=== PATIENT | female | born 1960 | race Caucasian/White ===

== ENCOUNTER → 2022-11-22 13:22 | Outpatient (BNVA) | payer MEDICAID, SELFPAY | PROVIDERS: Visit Provider Physician Assistant | DX: M43.16 Spondylolisthesis, lumbar region (principal); M51.36 Other intervertebral disc degeneration, lumbar region; M50.30 Other cervical disc degeneration, unspecified cervical region; M19.031 Primary osteoarthritis, right wrist; M48.061 Spinal stenosis, lumbar region without neurogenic claudication; M48.02 Spinal stenosis, cervical region | CPT/HCPCS: 72050; 72110; 73110 ==

== ENCOUNTER → 2023-03-26 10:17 | Outpatient (BNVA) | payer OTHER, MEDICAID, SELFPAY | PROVIDERS: Visit Provider Physician Assistant | DX: M19.031 Primary osteoarthritis, right wrist (principal); M79.642 Pain in left hand; M25.539 Pain in unspecified wrist | CPT/HCPCS: 73110; 73130 ==

== ENCOUNTER → 2023-04-23 14:11 | Outpatient (BNVA) | payer OTHER, MEDICAID, SELFPAY | PROVIDERS: Visit Provider Physician Assistant | DX: M50.30 Other cervical disc degeneration, unspecified cervical region (principal) | CPT/HCPCS: 72050 ==

== ENCOUNTER 2023-04-23 16:16 | Outpatient (CLI) | payer OTHER, MEDICAID, SELFPAY | END 2023-04-23 16:17 | disposition home or self-care (01) | LOC: SPT 16:18 | PROVIDERS: Visit Provider Physician Assistant | DX: Z46.89 Encounter for fitting and adjustment of other specified devices (principal); M50.30 Other cervical disc degeneration, unspecified cervical region | CPT/HCPCS: 97760; L0172 ==

== ENCOUNTER 2025-05-05 16:21 | Emergency (ER) | payer OTHER, MEDICAID, SELFPAY ==
[2025-05-05 16:26] VITALS: PULSE 85; RESP 16; TEMP 36.4; O2SAT 97
--- NOTE | 2025-05-05 16:34 | XRR_ITS ---
PROCEDURE INFORMATION: Exam: XR Lumbosacral Spine Exam date and time: 05/05/2025 5:19 PM Age: 64 years old Clinical indication: Low back pain TECHNIQUE: Imaging protocol: Radiologic exam of the lumbosacral spine. Views: 2 or 3 views. COMPARISON: CR XR lumbar spine min 4V [id number] 11/22/2022 1:35 PM FINDINGS: Bones/joints: Grade 1 anterolisthesis of L4 on L5 and L5 on S1, slightly progressed compared to 11/22/2022. Lower lumbar spondylosis. Vertebral body heights are preserved. Soft tissues: Unremarkable. XR/XR lumbar spine 2-3V* [id number] IMPRESSION: No lumbar spine compression fracture.
--- NOTE | 2025-05-05 16:34 | XRR_ITS ---
PROCEDURE INFORMATION: Exam: XR Left Hip Exam date and time: 05/05/2025 5:19 PM Age: 64 years old Clinical indication: Injury or trauma; Fall; Blunt trauma (contusions or hematomas); Left; Hip; Additional info: Hip pain TECHNIQUE: Imaging protocol: Radiologic exam of the left hip. Views: 2 or 3 views hip with pelvis when performed. COMPARISON: CR (PELVIS, ) 05/05/2025 5:19 PM FINDINGS: Bones/joints: There is a linear lucency extending through a large osteophyte extending from the superior acetabulum with the lucency extending medially toward the acetabulum. Pelvic ring is intact. No displaced femur fracture. Severe left hip osteoarthritis. Soft tissues: Unremarkable. XR/XR hip LT 2-3V wo/w pel* [id number] IMPRESSION: Lucency extending through a large osteophyte arising from the superior acetabulum with the lucency extending medially toward the acetabulum. It is unclear if the fracture only involves the osteophyte or if it extends into the acetabulum. CT may be useful for further characterization.
== END 2025-05-05 19:02 | disposition left against medical advice (07) ==
PROVIDERS: Emergency Provider Family Medicine
DX: Z53.21 Procedure and treatment not carried out due to patient leaving prior to being seen by health care provider (principal); M25.752 Osteophyte, left hip; M54.50 Low back pain, unspecified; M25.552 Pain in left hip
CPT/HCPCS: 72100; 73502

== ENCOUNTER 2025-06-18 11:50 | Outpatient (CLI) | payer MEDICARE, SELFPAY ==
--- NOTE | 2025-06-18 12:04 | CT_ITS ---
WS: [id number] CT LEFT HIP, NONCONTRAST HISTORY:, Fall 3 months ago. Persistent hip pain. Technique: All CT scans at [facility] use at least one of these dose optimization techniques: automated exposure control; mA and/or kV adjustment per patient size (includes targeted exams where dose is matched to clinical indication); or iterative reconstruction. DLP: 209.62 mGy.cm COMPARISON: 05/05/2025 Nonhealed fracture involving the superior lateral acetabulum. The fracture is through an large osteophyte that is extending lateral from the acetabulum. There is no displacement. This fracture does not appear to be displaced from the original radiographs from 05/05/2025. No additional acute or healing fracture is identified. There is a lucency just superior to the acetabulum which is well- corticated and probably represents a nutrient foramen. Extensive acetabular ridging extending both anterior and posterior and osteophytic ridging around the femoral head and neck. Moderate narrowing of the hip joint with bone upon bone and subchondral cystic changes. Subchondral cystic changes in the femoral head are closely associated with the acetabular fracture site. This is also the site of greatest contact of bone upon bone. No soft tissue hematoma or inflammation. No free fluid within the visualized pelvis. No muscle atrophy or edema. CT/CT hip LT wo con* [id number] IMPRESSION: 1. Nondisplaced and incompletely healed fracture involving the osteophyte exte nding lateral from the super acetabulum which was described on 05/05/2025. 2. No additional fractures or osseous displacement is identified. 3. Moderate narrowing of the hip joint with bone upon bone along the superior lateral acetabulum. 4. Subchondral cystic changes in the superolateral femoral head.
== END 2025-06-18 11:51 | disposition home or self-care (01) ==
LOC: RAD 11:56
PROVIDERS: PCP Family Medicine; Visit Provider Family Medicine
DX: M84.459 Pathological fracture, hip, unspecified (principal); X58.XXXA Exposure to other specified factors, initial encounter; M25.752 Osteophyte, left hip; M89.8X8 Other specified disorders of bone, other site
CPT/HCPCS: 73700

== ENCOUNTER → 2025-07-08 09:45 | Outpatient (BNVA) | payer MEDICARE, SELFPAY | PROVIDERS: PCP Family Medicine; Visit Provider Orthopaedic Surgery | DX: M16.12 Unilateral primary osteoarthritis, left hip (principal) | CPT/HCPCS: 73502; 99204 ==

== ENCOUNTER 2025-07-28 12:21 | Observation (INO) | payer MEDICARE, MEDICAID, SELFPAY ==
[2025-07-28] VITALS (12 sets, daily range): BP systolic 91–162; BP diastolic 60–100; PULSE 57–88; RESP 12–22; TEMP 36.1–36.7; O2SAT 94–98; BMI 22.8
--- NOTE | 2025-07-28 08:51 | ECG_ITS ---
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 Measurements Intervals [place] Rate: 72 P: 73 WA: 163 QRS: 76 QRSD: 80 T: 42 QT: 376 QTc: 411 Interpretive Statements SINUS RHYTHM No previous ECG available for comparison Electronically Signed On 07-30-2025 19:54:22 BUFFET WAITER/WAITRESS by Umer Woodruff M.D. [id number]
[2025-07-28 09:18] LABS: Hematocrit 45.8 % (36-47); Hemoglobin 15.50 g/dL (11.27-16.99); Mean Corpuscular HGB Conc 33.8 g/dL (30-55); Mean Corpuscular Hemoglobin 33.8 pg (27-33); Mean Corpuscular Volume 99.8 fl (85-98); Nucleated Red Blood Cells % 0 %; Platelet Count 394 10^3/cmm (157-399); Red Blood Count 4.59 10^6/uL (3.85-5.65); White Blood Count 6.39 10^3/uL (3.29-11.43)
[2025-07-28 09:43] LABS: Blood Urea Nitrogen 11 mg/dL (8-23); Calcium 9.5 mg/dL (8.5-10.5); Carbon Dioxide 22 mmol/L (22-29); Chloride 105 mmol/L (98-107); Glucose 93 mg/dL (65-115); Osmolality Calculated 287 mOsm/kg (285-295); Sodium 139 mmol/L (136-145)
[2025-07-28 09:48] LABS: Anion Gap 16.3 (5-19); Potassium 4.3 mmol/L (3.5-5.1)
--- NOTE | 2025-07-28 10:04 | W.PM.OPSUD ---
Surgery/Procedure H&P Update DATE OF PROCEDURE: July 28, 2025 DATE H&P PERFORMED: 06/30/25 H&P UPDATE INFORMATION: I have reviewed H&P completed within last 30 days, I have examined patient prior to procedure and No changes to prior documentation PLANNED PROCEDURE: Operation Date: 07/28/25 10:20 Proposed Procedures p Total Hip Arthroplasty(Left) - Dung Olivas MD
--- NOTE | 2025-07-28 10:14 | ANES.PREANE2 ---
Pre-Anesthetic Assessment Height/Weight: Height 1.55 m Weight 54.885 kg Temp Pulse Resp BP Pulse Ox O2 Del Method 97.1 F L 78 18 139/100 95 Room Air 07/28/25 09:00 07/28/25 09:00 07/28/25 09:00 07/28/25 09:00 07/28/25 09:00 07/28/25 09:03 Operation Date: 07/28/25 10:20 Proposed Procedures p Total Hip Arthroplasty(Left) - Dung Olivas MD Familial anesthetic complications: none Was Beta Preet taken within 24 hours: N/A Was Clonidine taken within 24 hours: N/A Last intake: Intake Last Liquid Date 07/27/25 Last Liquid Time 20:00 Last Solid Date 07/27/25 Last Solid Time 20:00 Social Tobacco and No alcohol Exam alert, oriented x 3, clear to auscultation bilaterally and regular rate & rhythm Airway Mallampati: Class I Dentition: false Musc/skel Osteoarthritis/DJD Anesthetic Plan ASA status: 2 Anesthesia: Regional (specify below) Other: spinal Medications/Allergies Home Medications ?Medication ?Instructions ?Recorded ?Confirmed ?Last Taken ?Type cock up splint #1 ea 11/22/22 07/08/25 Unknown Rx cervical collar #1 ea 04/23/23 07/08/25 Unknown Rx trazodone 150 mg tablet 150 mg PO QPM 07/08/25 07/27/25 07/27/25 History Allergies Allergy/AdvReac Type Severity Reaction Status Date / Time Penicillins Allergy Unknown Verified 07/20/25 12:54 Current Medications Generic Name Dose Route Start Last Admin Trade Name Onel PRN Reason Stop Dose Admin Sodium Chloride 1,000 mls @ 30 mls/hr 07/28/25 08:45 07/28/25 09:18 Sodium Chloride 0.9% IV 07/29/25 08:44 30 mls/hr .Q24H TRUE Administration PFSH Anesthesia Social History Smoking and tobacco/nicotine status: current every day tobacco/nicotine user Alcohol intake: never Substance/Drug Use: never Data Anesthesia 07/28/25 09:10 07/28/25 09:10 Short CBC 07/28/25 Range/Units 09:10 WBC 6.39 (3.29-11.43) 10^3/uL Hgb 15.50 (11.27-16.99) g/dL Hct 45.8 (36-47) % MCV 99.8 H (85-98) fl Plt Count 394 (157-399) 10^3/cmm Neut % (Auto) 68.4 % Neut # (Auto) 4.37 (1.8-7.7) 10^3/uL BMP 07/28/25 09:10 Sodium 139 Potassium 4.3 Chloride 105 Carbon Dioxide 22 BUN 11 Creatinine 0.6 Glucose 93 Calcium 9.5
[2025-07-28] MEDS: tranexamic acid 1,000 mg/10mL SDV 1000 MG IV (11:20)
--- NOTE | 2025-07-28 12:47 | XR_ITS ---
WS: [id number] Exam: XR hip LT 1V wo/w pel [id number] Date/Time of Exam: 07/28/2025 12:47 PM Reason For Exam: POST OP Comparison 07/08/2025. LEFT total hip prosthesis has been placed. Postop changes in the adjacent soft tissues.
--- NOTE | 2025-07-28 12:51 | PM.OP ---
Operative Report Date of procedure: July 28, 2025 Surgeon: Dung Olivas MD Procedure: Preoperative diagnosis: Left total hip arthroplasty preoperative diagnosis: End-stage degenerative joint disease of the left hip Postoperative diagnosis: Same Procedure: Left total hip arthroplasty Surgeon: Dung Olivas MD Anesthesia: Spinal EBL: 100 cc Indications: Evette is a 65-year-old white female was referred to the orthopedic clinic for debilitating left hip pain. Subsequently upon evaluation she had loss of motion excruciating pain with weightbearing or any type of motion with the hip. X-rays demonstrated grossly end-stage degenerative disease with collapse of the femoral head, subchondral cyst, loss of joint space. Patient was offered a total hip arthroplasty at this time. All risk benefits treatment alternatives were discussed with her and she was agreeable to this at this time. Procedure: After obtaining written consent patient was taken to the operating room placed operative table supine position spinal anesthetic administered. Once good anesthesia was achieved patient was placed up in a left lateral decubitus position. Patient was held in place with the pegboard. Left hip and leg were then prepped and draped usual fashion. After surgical timeout the hip was flexed 90 degrees and a minimally invasive posterior lateral incision made over the greater trochanter. Sharp dissected, down to subcutaneous tissue electrocautery used for hemostasis. Deep dissection was taken on down along the posterior aspect of the greater trochanter as the leg was internally rotated. Dissection was taken along the greater trochanter all the way down to the femoral neck. All soft tissues were raised with electrocautery. Capsule was opened up in a T-type fashion hip was internally rotated until dislocated. Deep retractors were placed. Proximal femur was then templated for femoral neck cut. Femoral neck cut was then done with a sagittal saw without any difficulties. At this point appropriate retractor placed to expose the acetabulum. A long handled 10 blade and pickups were used to remove all of the labrum there was remaining in the acetabulum. STM was then reamed starting a size 42 reamer and going up by 2 mm each time until reaching 48 mm. At this point good bleeding bone was starting to show. Cup was then reamed on up to 49 with good bleeding bone identified circumferentially. Subsequently at this point cup was touched around the periphery with a size 50 reamer. At this point a permanent size 50 cup was placed with appropriate anteversion and impacted. Good fixation was achieved. Polyethylene liner was placed and locked in place. Deep retractors were removed. At this point proximal femoral retractor was placed to raise it up out of the wound. Entry point into the femur was done with a box cut osteotome. Hand reaming then power reamer was done in the proximal portion. Broaches were then used for starting up with a 0 and going to 1 and attempts were made to put in a size 2 broach however this was too large. Therefore was decided to go with a size 1 femoral stem. Areas washed copious amounts of pulse Avage irrigation. Everything was dried and clean. Permanent size 1 femoral component was placed and impacted with appropriate anteversion. Once in place trial head and necks were Then placed on the femoral neck and hip was reduced put through range of motion. It is found that the size 36 head with a +5 neck brought the leg up to a appropriate leg length. Hip was put through range of motion found to be stable. Wound was washed with copious Harper sterile rogation again. At this point permanent size 36 head with a +5 neck was placed on the Chiang taper impacted. Again hip was reduced and found to be stable. At this point capsule of the hip was repaired with #1 Vicryl [id number] sutures. Piriformis replaced back to the greater trochanter with #5 Ethibond sutures through bone tunnels. Deep retractors removed. Deep fascia repaired with #1 Vicryl [id number] sutures. Subcutaneous tissue reapproximated with 0 Vicryl interrupted sutures. As well as 2-0 Vicryl interrupted sutures. Skin was closed skin cameron. Wounds are cleaned and dried with Xeroform gauze and sterile OpSite dressing. Patient was then placed in abduction pillow awakened transferred to cover room in stable condition
--- NOTE | 2025-07-28 12:55 | ANE.PACU2 ---
Inpatient post-anesthesia follow up: Airway intact: Yes Vital signs: Temperature 97.4 F Pulse Rate 75 Respiratory Rate 19 Blood Pressure 135/83 Pulse Oximetry 98 Oxygen Delivery Me thod Room Air Oxygen Flow Rate 96 Fraction of Inspir ed Oxygen Hydration adequate: Yes Nausea and vomiting: No Pain level: 1 Mental status: Baseline
--- NOTE | 2025-07-28 13:24 | PC.NURSE ---
1308 accepted into room 269 with Gina RN at side - BP 110/60 - pulse 65 - 8347%
[2025-07-28] MEDS: HYDROcodone-acetaminophen 5-325 mg Tablet 1 TAB PO ×2 (14:02→21:32)
[2025-07-28] MEDS: mupirocin oint 22 gm 1 APPLIC NASAL (17:30)
[2025-07-28] MEDS: sennosides-docusate Tablet 2 TAB PO (17:31)
[2025-07-28] MEDS: chlorhexidine gluconate 0.12% Btl 473 mL 30 ML MUCOUS MEM (17:32)
[2025-07-29 04:00] VITALS: BP 132/78; PULSE 69; RESP 16; TEMP 36.8; O2SAT 96
[2025-07-29] MEDS: multivitamin therapeutic Tablet 1 TAB PO (04:49)
[2025-07-29] MEDS: sennosides-docusate Tablet 2 TAB PO (04:49)
[2025-07-29] MEDS: chlorhexidine gluconate 0.12% Btl 473 mL 30 ML MUCOUS MEM (04:51)
[2025-07-29] MEDS: mupirocin oint 22 gm 1 APPLIC NASAL (04:54)
[2025-07-29 06:02] LABS: Hematocrit 34.6 % (36-47); Hemoglobin 12.00 g/dL (11.27-16.99); Mean Corpuscular HGB Conc 34.7 g/dL (30-55); Mean Corpuscular Hemoglobin 33.3 pg (27-33); Mean Corpuscular Volume 96.1 fl (85-98); Nucleated Red Blood Cells % 0 %; Platelet Count 318 10^3/cmm (157-399); Red Blood Count 3.60 10^6/uL (3.85-5.65); White Blood Count 7.13 10^3/uL (3.29-11.43)
[2025-07-29 06:24] LABS: Anion Gap 16.0 (5-19); Blood Urea Nitrogen 9 mg/dL (8-23); Calcium 8.3 mg/dL (8.5-10.5); Carbon Dioxide 20 mmol/L (22-29); Chloride 109 mmol/L (98-107); Glucose 138 mg/dL (65-115); Osmolality Calculated 293 mOsm/kg (285-295); Potassium 4.0 mmol/L (3.5-5.1); Sodium 141 mmol/L (136-145)
[2025-07-29 07:53] VITALS: BP 110/69; PULSE 90; RESP 17; TEMP 36.8; O2SAT 91
[2025-07-29] MEDS: HYDROcodone-acetaminophen 5-325 mg Tablet 1 TAB PO ×2 (08:39→12:42)
--- NOTE | 2025-07-29 10:05 | PC.CHAP ---
Pastoral Care Encounter/Spiritual Assessment Type of Contact [] Declined waste/materials exchange specialist visit [] Patient/Family/Request visit [] Outpatient visit [] Follow-up visit [] Physician referral [] Code/Alert [x] Routine visit [] Staff referral [] Actively dying [] Patient sleeping [] Family support [] [] Out of room [] Palliative care [] [] Receiving care in room [] Pre-surgical visit [] Trauma [] Long length of stay [] ICU visit [] Other: Relational/Emotional Strength [x] Patient feels connected with others/family/visitors/staff [] Distress [] Loneliness/isolation [] Abandonment Spirituality of Patient [x] Person of Gina [] Attends Quaker of their Gina [x] Believes in Prayer [] Reads Bible or Mu-Ism materials [] There are Spiritual issues to be addressed Office Support Specialist Interventions [x] Prayer [x] Active listening [] Non-anxious presence [x] Spiritual/emotional support [] Crisis/trauma care [] Spiritual counseling [] Bereavement support [] Provided bereavement packet [] Provided Bible/devotional materials [] Provided toy/stuffed animal, coloring book to patient or family member [] Provided Communion [] Anointing/[place] [] Salvation [x] Completed spiritual assessment [] Other: Impact on Illness or Injury [] Angry [] Fearful [] Anxious [] Often cries [] Exhaustion [] Unable to work [] Unable to attend orthodox [] Unable to walk/stand [] Unable to read [] Unable to drive [] Unable to eat/drink [] Unable to sleep [] Unable to be with family [] Patient intubated [] Other: Summary Time spent with patient 5 min
[2025-07-29 11:55] VITALS: BP 111/69; PULSE 93; RESP 18; TEMP 36.9; O2SAT 94
[2025-07-29 16:00] VITALS: BP 119/74; PULSE 87; RESP 20; TEMP 36.8; O2SAT 97
--- NOTE | 2025-07-29 16:31 | P.DS_ITS ---
Discharge Providers Date of Admission: 07/28/25 12:21 Date of Discharge: July 29, 2025 Attending Provider at Admission: Dung Olivas MD Attending Provider at Discharge: Dung Olivas MD Primary Care Provider: Vaughn Mcconnell MD Reason for Visit Reason for Visit: M25.552 Brief History: Patient was admitted on 07/28/2025 for end-stage degenerative joint disease of left hip. Subsequently had a left total hip arthroplasty yesterday. She tolerated this quite well. Hospital Course Hospital Course Patient had surgery on 07/28/2025 above-stated procedure. She tolerated this well. Postoperatively he was able to participate with physical therapy and get up and ambulatory with a walker. Having no pain no problems no difficulties other than to be expected. By 07/29/2025 afternoon she was ready to be discharged home. Physical Exam Narrative: Wounds are covered with dressings and these are clear. She has minimal swelling no ecchymosis no other gross abnormalities. Neurovascular intact distally Urinary Catheter Management: White: Cath Placed During This Visit: yes Reason for Continuing Indwelling Catheter: Perioperative Use in Selected Surgeries Urinary Catheter Date of Insertion: 07/28/25 Urinary Catheter Time of Insertion: 11:22 Discharge Data Studies Completed and Pending Completed Studies During Hospitalization Category Date Time Status XR hip LT 1V wo/w pel [id number] Routine Exams 07/28/25 12:47 Completed Pending at discharge Category Date Time Status Complete Blood Count w/Auto AM LABS Lab 07/30/25 04:00 Ordered Complete Blood Count w/Auto AM LABS Lab 07/31/25 04:00 Ordered Laboratory Results WBC 7.13 10^3/uL (3.29-11.43) 07/29/25 05:23 RBC 3.60 10^6/uL (3.85-5.65) L 07/29/25 05:23 Hgb 12.00 g/dL (11.27-16.99) 07/29/25 05:23 Hct 34.6 % (36-47) L 07/29/25 05:23 MCV 96.1 fl (85-98) 07/29/25 05:23 MCH 33.3 pg (27-33) H 07/29/25 05:23 MCHC 34.7 g/dL (30-55) 07/29/25 05:23 RDW 12.8 % (12.1-15.1) 07/29/25 05:23 Plt Count 318 10^3/cmm (157-399) 07/29/25 05:23 MPV 9.0 fL (7.4-10.4) 07/29/25 05:23 Neut % (Auto) 72.6 % 07/29/25 05:23 Lymph % (Auto) 15.6 % 07/29/25 05:23 [place] % (Auto) 10.2 % 07/29/25 05:23 Eos % (Auto) 0.7 % 07/29/25 05:23 Baso % (Auto) 0.6 % 07/29/25 05:23 Neut # (Auto) 5.18 10^3/uL (1.8-7.7) 07/29/25 05:23 Lymph # (Auto) 1.1 10^3/uL (0.8-4.8) 07/29/25 05:23 [place] # (Auto) 0.7 10^3/uL (0.2-0.9) 07/29/25 05:23 Eos # (Auto) 0.1 10^3/uL (0.0-0.8) 07/29/25 05:23 Baso # (Auto) 0.0 10^3/uL (0.0-0.1) 07/29/25 05:23 Nucleated RBC % (auto) 0 % 07/29/25 05:23 Nucleated RBCs # 0.0 /100WBC 07/29/25 05:23 Sodium 141 mmol/L (136-145) 07/29/25 05:23 Potassium 4.0 mmol/L (3.5-5.1) 07/29/25 05:23 Chloride 109 mmol/L (98-107) H 07/29/25 05:23 Carbon Dioxide 20 mmol/L (22-29) L 07/29/25 05:23 Anion Gap 16.0 (5-19) 07/29/25 05:23 BUN 9 mg/dL (8-23) 07/29/25 05:23 Creatinine 0.6 mg/dL (0.5-0.9) 07/29/25 05:23 GFR Calculation 100.0 mL/min (90-130) 07/29/25 05:23 Glucose 138 mg/dL (65-115) H 07/29/25 05:23 Calculated Osmolality 293 mOsm/kg (285-295) 07/29/25 05:23 Calcium 8.3 mg/dL (8.5-10.5) L 07/29/25 05:23 Procedures Performed Left total hip arthroplasty Vitals Last Vital Signs Temp 98.2 F 07/29/25 16:00 Pulse 87 07/29/25 16:00 Resp 20 H 07/29/25 16:00 BP 119/74 07/29/25 16:00 Pulse Ox 97 07/29/25 16:00 O2 Del Method Room Air 07/29/25 16:00 O2 Flow Rate 96 07/28/25 13:54 Discharge Plan Discharge Patient Disposition: Home Health Service Condition: Stable Prescriptions: New hydrocodone-acetaminophen 5-325 mg tablet 1 tab PO Q6H PRN (Reason: pain) Qty: 30 0RF Continued (DME) cock up splint See Rx Instructions .Route .MEDSUPPLY Qty: 1 0RF Rx Instructions: As directed (DME) cervical collar See Rx Instructions .Route .MEDSUPPLY Qty: 1 0RF Rx Instructions: As directed trazodone 150 mg tablet See Rx Instructions .ROUTE .COMPLEX Rx Instructions: Take 1 to 2 tablets by mpouth daily at bedtime Discharge Order = DC NOW: Discharge Order (Routine); Ordered 07/29/25 Ordered By: Dung Olivas Other Ambulatory Orders: DME: [employer] (Order) Location: None Selected Ordered By: Dung Olivas DME: Walker (Order) Location: None Selected Ordered By: Dung Olivas Referrals: [facility] [place] [Outside] Dung Olivas MD [Physician, Orthopedics] - 08/19/25 10:45 am Discharge Diet: Advance as tolerated Discharge Activity: Increase activity as tolerated Patient Instructions: Hydrocodone/Acetaminophen (By mouth), Acute Wound Care (DC), Total Hip Replacement (GEN), Opioid Safety, Post Anesthesia Care, Patient Portal & Annabella Instructions Activity Restrictions/Additional Instructions: Hip precautions at all times Abduction pillow between legs while in bed Do not cross your legs over Ice left hip as needed Ambulate daily with a walker Do home exercise program Discharge Attestations Time Spent in Discharge Care*: less than 30 min Quality Metrics Clinical Quality Measures [ No reported AMI, CVA or VTE this stay] Coding Level of Care Code Acute Code for Chg Fwd
--- NOTE | 2025-07-29 16:51 | PC.NURSE ---
pts family brought a truck for her to get into. they also were using a round log as a step stool. educ pt and family, that this was not a safe way to get into the vehicle. they continued to use it to assist with her getting into the vehicle. pt also had prev. refused walker from [facility]. she changed her mind, educ. where to pick it up since she changed her mind and it was taken back to the store.
== END 2025-07-29 16:45 | disposition home health service (06) ==
LOC: MEDSURG 12:21
PROVIDERS: Anesthesiology; Admitting Provider Orthopaedic Surgery; PCP Family Medicine; Visit Provider Orthopaedic Surgery
PROC: (CPT 27130; principal; 2025-07-28 10:20)
DX: M16.12 Unilateral primary osteoarthritis, left hip (principal); F17.200 Nicotine dependence, unspecified, uncomplicated
CPT/HCPCS: 27130; 36415; 51702; 73501; 80048; 85025; 93005; 97110; 97116; 97161; 97167; 97530; C1713; C1776; G0378; J1885; J2704; J3490; J7030; J9999

== ENCOUNTER 2025-07-30 13:20 | Emergency (ER) | payer MEDICARE, MEDICAID, SELFPAY ==
[2025-07-30 12:30] VITALS: BP 92/56; PULSE 70; RESP 14; TEMP 36.6; O2SAT 95; BMI 22.8
[2025-07-30 12:43] VITALS: BP 101/65; PULSE 70; O2SAT 95
--- NOTE | 2025-07-30 12:52 | ED_ITS ---
Documented by User: LEANNA Baxter 07/30/25 14:59 HPI - Extremity Problem General: Chief complaint: Extremity Injury, Lower Stated complaint: hip pain post surgery Source: patient, EMS and old records reviewed Mode of arrival: EMS Limitations: no limitations History of Present Illness: Patient is a 65-year-old female presents emergency brought in by ambulance for left hip pain status post surgery on 07/28. Patient reportedly had left total hip arthroplasty, was set to be placed in rehab facility but at that time denied it. She went home and states that she fell while trying to ambulate herself, and is here stating that she just needs rehab placement. Had reported severe pain but completely resolved after receiving fentanyl by EMS. She has no other complaints at this time, her vitals are stable. No trauma to the hip. No fevers or nausea/vomiting. MD Complaint: joint pain Onset (ago): day(s) Location: left and lower extremity (Hip) Associated symptoms: Deny chest pain, fever(s) or rash Context: recent surgery/procedure Related Data Home Medications ?Medication ?Instructions ?Recorded ?Confirmed trazodone 150 mg tablet See Rx Instructions .Route . COMPLEX 07/08/25 07/30/25 diphenhydramine 25 1 tab PO Q6H PRN slepp 07/3007/30/25 mg-acetaminophen 500 mg tablet (Tylenol PM Extra Strength) varenicline tartrate 0.5 mg (11)-1 See Rx Instructions .Route .COMPLEX 07/30/25 07/30/25 mg (42) tablets in a dose pack varenicline tartrate 1 mg tablet 1 mg PO BID 07/30/25 07/30/25 Previous Rx's ?Medication ?Instructions ?Recorded cock up splint #1 ea 11/22/22 cervical collar #1 ea 04/23/23 hydrocodone 5 mg-acetaminophen 325 1 tab PO Q6H PRN pa in #30 tabs 07/29/25 mg tablet Allergies Allergy/AdvReac Type Severity Reaction Status Date / Time Penicillins Allergy Unknown Verified 07/30/25 12:42 Review of Systems General: Reports: 10 or more systems reviewed and unremarkable except in HPI and below Const: Denies: fever(s) or chills Card: Denies: chest pain Resp: Denies: dyspnea or productive cough GI: Denies: abdominal pain, nausea, vomiting or diarrhea : Denies: flank pain Musc: Reports: joint pain (Left hip); Denies: neck pain, back pain, extremity pain, extremity swelling, joint swelling, joint redness, joint warmth, limited range of motion or muscle weakness Skin/Breast: Denies: rash Neuro: Denies: headache(s), numbness in extremities or weakness in extremities PFSH ED PFSH: Social History Smoking and tobacco/nicotine status: current every day tobacco/nicotine user Alcohol intake: never Substance/Drug Use: never Physical Exam Const: COMMON NORMALS: no acute distress, patient oriented x3, no limitations, healthy appearing, alert and well nourished HENMT: COMMON NORMALS: normocephalic and atraumatic HEAD & SCALP: normocephalic and atraumatic Neck/C-Spine: COMMON NORMALS: full ROM, supple and no meningeal signs Resp: COMMON NORMALS: normal respiratory effort, No use of accessory muscles and clear to auscultation bilaterally AUSCULTATION: clear to auscultation bilaterally Cardio: COMMON NORMALS: regular rate and regular rhythm RATE: regular rate RHYTHM: regular rhythm Extremity: COMMON NORMALS: full ROM, capillary refill normal, no joint e nlargement and no clubbing, cyanosis or edema NARRATIVE EXTREMITY EXAM: Mild tender to palpation left lateral hip, there is postoperative bandage in place, no significant erythema or skin swelling surrounding the incision. Distal neurovascular exam is normal. Neuro: COMMON NORMALS: patient oriented x3, moves all extremities, no focal motor deficits and no sensory deficits noted SENSORIUM/ORIENTATION: Yes alert MENINGEAL SIGNS: Yes no meningeal signs Skin: COMMON NORMALS: no rashes or lesions noted GENERAL SKIN EXAM: no rashes or lesions noted Course Vital Signs: Vital signs: Vital Signs Temperature 97.8 F 07/30/25 12:30 Pulse Rate 76 07/30/25 15:10 Respiratory Rate 14 07/30/25 12:30 Blood Pressure 114/69 07/30/25 15:10 Pulse Oximetry 94 07/30/25 15:10 Oxygen Delivery Me thod Room Air 07/30/25 12:30 MDM - Extremity (Nontraumatic) Medical Decision Making Patient present by ambulance for left hip pain status post total left hip arthropathy couple days ago. She reports stating that she is able to care for self at home, had a fall while trying to ambulate despite being 2 days postop, initially from the hospital had denied wanting transferred to rehab facility but states that here today she needs placement due to her being able to care for herself. She was pain-free following medications from EMS, neurological exam normal to the left lower extremity and knee x-ray did not show any acute abnormalities from the reported fall today. With assistance from kinjal holdenmicah humphreysgalen, patient will be placed at [facility] for rehabilitation, no further workup necessary in the ED at this time. Lab Data Radiology Impressions Hip/Pelvis X-Ray 07/30/25 12:53 IMPRESSION: 1. Stable appearing LEFT hip total arthroplasty. No complications. All radiology interpretation(s) finalized by discharge Discharge Plan Discharge Patient Disposition: Rehab Fac w Plan Readm Clinical Impression: History of arthroplasty of left hip Condition: Stable Prescriptions: No Action (DME) cock up splint See Rx Instructions .Route .MEDSUPPLY Qty: 1 0RF Rx Instructions: As directed (DME) cervical collar See Rx Instructions .Route .MEDSUPPLY Qty: 1 0RF Rx Instructions: As directed trazodone 150 mg tablet See Rx Instructions .ROUTE .COMPLEX Rx Instructions: Take 1 to 2 tablets by mpouth daily at bedtime hydrocodone-acetaminophen 5-325 mg tablet 1 tab PO Q6H PRN (Reason: pain) Qty: 30 0RF diphenhydramine-acetaminophen [Tylenol PM Extra Strength] 25-500 mg Tablet 1 tab PO Q6H PRN (Reason: slepp ) varenicline tartrate 1 mg tablet 1 mg PO BID varenicline tartrate 0.5 mg (11)- 1 mg (42) tablets,dose pack See Rx Instructions .ROUTE .COMPLEX Rx Instructions: TAKE BY MOUTH DIRECTED ON INSIDE OF PACKAGE Discharge Orders: Discharge ED (Routine); Ordered 07/30/25 Ordered By: Qasim Leger Referrals: Vaughn Mcconnell MD [Primary Care Provider, Family Practice] Print Language: Greek Coding Level of Care Code ED Health Information Internship for Chg Fwd Documented by User: Manuel Orosco DO 07/31/25 14:32 HPI - Extremity Problem General: Chief complaint: Extremity Injury, Lower Stated complaint: hip pain post surgery Related Data Home Medications ?Medication ?Instructions ?Recorded ?Confirmed trazodone 150 mg tablet See Rx Instructions .Route . COMPLEX 07/08/25 07/30/25 diphenhydramine 25 1 tab PO Q6H PRN slepp 07/3007/30/25 mg-acetaminophen 500 mg tablet (Tylenol PM Extra Strength) varenicline tartrate 0.5 mg (11)-1 See Rx Instructions .Route .COMPLEX 07/30/25 07/30/25 mg (42) tablets in a dose pack varenicline tartrate 1 mg tablet 1 mg PO BID 07/30/25 07/30/25 Previous Rx's ?Medication ?Instructions ?Recorded cock up splint #1 ea 11/22/22 cervical collar #1 ea 04/23/23 hydrocodone 5 mg-acetaminophen 325 1 tab PO Q6H PRN pa in #30 tabs 07/29/25 mg tablet Allergies Allergy/AdvReac Type Severity Reaction Status Date / Time Penicillins Allergy Unknown Verified 07/30/25 12:42 PFS ED PFSH: Social History Smoking and tobacco/nicotine status: current every day tobacco/nicotine user Alcohol intake: never Substance/Drug Use: never Course Vital Signs: Vital signs: Vital Signs Temperature 97.8 F 07/30/25 12:30 Pulse Rate 76 07/30/25 15:10 Respiratory Rate 14 07/30/25 12:30 Blood Pressure 114/69 07/30/25 15:10 Pulse Oximetry 94 07/30/25 15:10 Oxygen Delivery Me thod Room Air 07/30/25 12:30 MDM - Extremity (Nontraumatic) Medical Decision Making Patient present by ambulance for left hip pain status post total left hip arthropathy couple days ago. She reports stating that she is able to care for self at home, had a fall while trying to ambulate despite being 2 days postop, initially from the hospital had denied wanting transferred to rehab facility but states that here today she needs placement due to her being able to care for herself. She was pain-free following medications from EMS, neurological exam normal to the left lower extremity and knee x-ray did not show any acute abnormalities from the reported fall today. With assistance from case management, patient will be placed at [facility] for rehabilitation, no further workup necessary in the ED at this time. Chart reviewed Lab Data Radiology Impressions Hip/Pelvis X-Ray 07/30/25 12:53 IMPRESSION: 1. Stable appearing LEFT hip total arthroplasty. No complications. Discharge Plan Discharge Patient Disposition: Rehab Fac w Plan Readm Clinical Impression: History of arthroplasty of left hip Condition: Stable Prescriptions: No Action (DME) cock up splint See Rx Instructions .Route .MEDSUPPLY Qty: 1 0RF Rx Instructions: As directed (DME) cervical collar See Rx Instructions .Route .MEDSUPPLY Qty: 1 0RF Rx Instructions: As directed trazodone 150 mg tablet See Rx Instructions .ROUTE .COMPLEX Rx Instructions: Take 1 to 2 tablets by mpouth daily at bedtime hydrocodone-acetaminophen 5-325 mg tablet 1 tab PO Q6H PRN (Reason: pain) Qty: 30 0RF diphenhydramine-acetaminophen [Tylenol PM Extra Strength] 25-500 mg Tablet 1 tab PO Q6H PRN (Reason: slepp ) varenicline tartrate 1 mg tablet 1 mg PO BID varenicline tartrate 0.5 mg (11)- 1 mg (42) tablets,dose pack See Rx Instructions .ROUTE .COMPLEX Rx Instructions: TAKE BY MOUTH DIRECTED ON INSIDE OF PACKAGE Discharge Orders: Discharge ED (Routine); Ordered 07/30/25 Ordered By: Qasim Leger Referrals: Vaughn Mcconnell MD [Primary Care Provider, Family Practice] Print Language: Greek Coding Level of Care Code ED Health Information Internship for Rebecca Mfcarlane
--- NOTE | 2025-07-30 12:53 | XR_ITS ---
WS: [id number] Exam: XR hip LT 2-3V wo/w pel* [id number] Date/Time of Exam: 07/30/2025 1:30 PM Reason For Exam: recent hip surgery, fall today Comparison 07/28/2025. Intact LEFT total hip replacement noted. No fracture or loosening. Residual soft tissue changes secondary to surgery. Lateral surgical skin clips. The pelvis is intact. Intact RIGHT hip. XR/XR hip LT 2-3V wo/w pel* [id number] IMPRESSION: 1. Stable appearing LEFT hip total arthroplasty. No complications.
[2025-07-30 13:41] VITALS: BP 98/64; O2SAT 94
--- NOTE | 2025-07-30 14:58 | PC.SOCIAL ---
CM spoke to patient and informed her that she could go to a SNF under her medicaid but she wouldnt recieve PT and she would have to give up her check if she is still there the first of August. She voiced understanding and was agreeable. Referral faxed to [facility], [facility], [facility] and [facility]. Kamala Calls and states [facility] accepts. ER notified at this time. [id number] done, doctor signed and copy placed in chart. Ref #[id number]
--- NOTE | 2025-07-30 15:02 | PC.NURSE ---
report given to JAKI Plascencia at [facility]
[2025-07-30 15:10] VITALS: BP 114/69; PULSE 76; O2SAT 94
== END 2025-07-30 15:15 ==
PROVIDERS: Emergency Provider Physician Assistant; PCP Family Medicine
DX: Z96.642 Presence of left artificial hip joint (principal); Z72.0 Tobacco use
CPT/HCPCS: 73502; 99283

== ENCOUNTER 2025-08-01 16:15 | Emergency (ER) | payer MEDICARE, MEDICAID, SELFPAY ==
--- OUTSIDE RECORDS SUMMARY | 2025-08-01 16:18 | XMS_ITS ---
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 Name Role Phone Haider Ora Unavailable Unavailable Alvin Griffith Unavailable Unavailable Allergies and adverse reactions Code CodeSystem Substance Reaction Severity StartDate Concern Status 7984 RXNORM Penicillin Unknown 07/30/2025 active Care Team Name Role Address Phone Organization Dates Alvin Griffith [facility] [address] [place], [address], [facility] (Office): [facility] 07/30/2025 - present Ora Maloney [address] [place] [address], [facility], [facility] (Office): : [facility] 07/30/2025 - present Encounters Encounter Type Code Code System Description Performer Discharge Disposition Service Delivery Location Date Ambulatory Encounter CPT Code = [id number] Attention to prosthetic replacement of articulation of bone [facility] Address: [address] [place] [address], [address] [place] [address]. 07/30 Ambulatory Encounter CPT Code = [id number] Osteoarthritis of hip [facility] Address: [address] [place] [address], [address] [place] [address]. 07/30 Ambulatory Encounter CPT Code = [id number] Hip pain [facility] Address: [address] [place] [address], [address] [place] [address]. 07/30 Ambulatory Encounter CPT Code = [id number] Chronic pain [facility] Address: [address] [place] [address]. 07/30 Ambulatory Encounter CPT Code = [id number] Constipation [facility] Address: [address] [place] [address]. 07/30 Ambulatory Encounter CPT Code = [id number] Insomnia [facility] Address: [address] [place] [address]. 07/30 Functional Status Code Name Recorded Time Value Entered By Ambulation 08/01/2025 Extensive Assistance sapphir ecarswell Ambulation 08/01/2025 Extensive Assistance sapphir ecarswell Ambulation 08/01/2025 Extensive Assistance sapphir ecarswell Ambulation 08/01/2025 Extensive Assistance sapphir ecarswell Dressing 08/01/2025 Extensive Assistance sapphir ecarswell Feeding or Eating 08/01/2025 Supervision sapphireca rswell Toileting 08/01/2025 Extensive Assistance sapphir ecarswell Transferring 08/01/2025 Extensive Assistance sapphir ecarswell Immunizations Immunization Status Vaccine Details Vaccine Code CodeSystem Date Notes TB 2 Step Mantoux Skin Test completed tuberculin skin test; unspecified formulation lotNumber: [id number] expiry: 05/17/2026 Mfg: Pharmaceutical Given 0.1 ml Left Forearm intradermally Step 1 of Multi-step with next step required 98 CVX created date: 07/31/2025 consent date: 07/31/2025 administer ed date: 07/31/2025 Educated by on 07/31/2025 TB given in left forearm. This blurb writer circled area with black permanent marker will read in 48 hours TB 2 Step Mantoux Skin Test new tuberculin skin test; unspecified formulation 98 CVX created date: 07/31/2025 consent date: 07/31/2025 Medications Section Medication Name Status Code CodeSystem Dose Route Frequency Admin Type Sig Text Start Date End Date Indication HYDROcodone -Acetaminop hen Oral Tablet 5-325 MG aborted 79660 2 RXNORM 1 table t Oral as needed PRN Give 1 table t by mouth every 6 hours as neede d for Pain 07/31 Pain HYDROcodone -Acetaminop hen Oral Tablet 5-325 MG active 44131 2 RXNORM 1 table t Oral as needed PRN Give 1 table t by mouth every 6 hours as neede d for Pain Not to excee d 4,000 mg Tylen ol from [facility] 24 hours . 2024 - Pain Mylanta Suspension 200-200-20 MG/5ML active 54704 6 RXNORM 30 ml Oral as needed PRN Give 30 ml by mouth every 4 hours as neede d for indig estio n for 3 Days 08/03 indigestion Bisacodyl Tablet Delayed Release 5 MG aborted 14576 3 RXNORM 2 table t Oral as needed PRN Give 2 table t by mouth as neede d for const ipati on at AM 08/01 constipatio n Bisacodyl Tablet Delayed Release 5 MG active 19686 3 RXNORM 2 table t Oral as needed PRN Give 2 table t by mouth every 24 hours as neede d for const ipati on in the [facility] 2024 - constipatio n Insurance Providers Problems Problem # Description Date of onset Resolved Date Code CodeSystem Concern Status 1 AFTERCARE FOLLOWING JOINT REPLACEMENT SURGERY 07/30/[address] active 2 CONSTIPATION, UNSPECIFIED 07/30/[address] active 3 OTHER CHRONIC PAIN 07/30/[address] active 4 OTHER INSOMNIA 07/30/[address] ac tive 5 PAIN IN LEFT HIP 07/30/[address] a ctive 6 UNILATERAL PRIMARY OSTEOARTHRITIS, LEFT HIP 07/30/[address] active Reason for Referral No Reasons for Referral Entered Social History Social History Observation Description Start Date End Date Code Code System Current Smoking Status Tobacco smoking consumption unknown 969074768 SNOMED CT Sex Assigned At Female 1960 82522-8 LOINC Gender Identity Sexual Orientation Vital Signs Code Code System Vitals Name Values and Units Timing Information 11874-6 LOINC Pain Level Value=3.0 08/01/2025 9279-1 LOINC Respiratory Rate Value=18.0 Units=/m in 08/01/2025 8462-4 [facility] Blood Pressure-Diastolic Value=81 Un its=mmHg 08/01/2025 8480-6 [facility] Blood Pressure-Systolic Oolxf=468 Un its=mmHg 08/01/2025 8310-5 [facility] Body Temperature Value=98.3 Units= F 08/01/2025 8867-4 [facility] Heart rate Value=78.0 Units=/min 78732-6 [facility] O2 % BldC Oximetry Value=95.0 Units= % 08/01/2025 8302-2 [facility] Height Value=61.0 Units=Inches 07/31/2025 82622-1 [facility] Weight Depfq=953.6 Units=Lbs
--- NOTE | 2025-08-01 16:19 | XRR_ITS ---
PROCEDURE INFORMATION: Exam: XR Left Hip Exam date and time: 08/01/2025 4:29 PM Age: 65 years old Clinical indication: Hip pain; Left hip; Prior surgery; Surgery date: <1 month; Surgery type: Lt hip TECHNIQUE: Imaging protocol: Radiologic exam of the left hip. Views: 2 or 3 views hip with pelvis when performed. COMPARISON: CR XR hip LT 2-3V wo/w pel* [id number] 07/30/2025 1:22 PM FINDINGS: Bones/joints: There is a stable and normal-appearing left total hip prosthesis. Pelvis and right hip are unremarkable. Soft tissues: Postoperative soft tissue changes are seen including multiple skin cameron. XR/XR hip LT 2-3V wo/w pel* [id number] IMPRESSION: No acute findings. Stable left total hip prosthesis.
--- NOTE | 2025-08-01 16:19 | USR_ITS ---
PROCEDURE INFORMATION: Exam: US Duplex Left Lower Extremity Veins, Limited Exam date and time: 08/01/2025 4:54 PM Age: 65 years old Clinical indication: Pain; Leg, upper and foot; Prior surgery; Surgery date: 3-7 days post-operative; Surgery type: Patient had left hip replacement 07/28/2025; Additional info: Left leg pain TECHNIQUE: Imaging protocol: Real-time duplex ultrasound of the left extremity with 2-D espinoza scale, color Doppler flow and spectral waveform analysis including responses to compression and other maneuvers (when performed) with image documentation. Limited exam focused on the left lower extremity veins. COMPARISON: CT hip LT wo con* [id number] 06/18/2025 12:11 PM FINDINGS: Left deep veins: Unremarkable. The common femoral, femoral, proximal profunda femoral and popliteal veins as well as the visualized deep veins of the lower leg are patent without thrombus. Normal Doppler waveforms. Normal compressibility and/or augmentation response. Superficial veins: Greater saphenous vein at the saphenofemoral junction is patent without thrombus. Soft tissues: Unremarkable. US/[place] [id number] IMPRESSION: No evidence of deep vein thrombosis.
[2025-08-01 16:32] VITALS: BP 128/74; PULSE 77; RESP 17; TEMP 36.8; O2SAT 97
[2025-08-01] MEDS: ondansetron 2 mg/ML SDV 2 mL 4 MG IVP (16:33)
[2025-08-01] MEDS: HYDROmorphone 0.5 MG/0.5 ML INJ 1 MG IVP (16:33)
[2025-08-01 16:40] VITALS: BP 131/75; PULSE 78; O2SAT 96
--- NOTE | 2025-08-01 16:40 | ED_ITS ---
HPI - Fall General: Chief Complaint: Fall Stated Complaint: left hip pain Time Seen by Provider: 08/01/25 16:17 Source: patient and EMS Mode of arrival: EMS Limitations: no limitations History of Present Illness: 65-year-old female had a left hip replac ement last week has been having significant pain since then. Patient states she had had a fall 2 days ago was seen here had a negative x-ray but is continued to have pain at the residential. States pain sharp in nature in her left hip rates it a 7 out of 10 has had some slight swelling to the left leg as well. Denies any fevers. Related Data Home Medications ?Medication ?Instructions ?Recorded ?Confirmed trazodone 150 mg tablet See Rx Instructions .Route . COMPLEX 07/08/25 07/30/25 diphenhydramine 25 1 tab PO Q6H PRN slepp 07/3007/30/25 mg-acetaminophen 500 mg tablet (Tylenol PM Extra Strength) varenicline tartrate 0.5 mg (11)-1 See Rx Instructions .Route .COMPLEX 07/30/25 07/30/25 mg (42) tablets in a dose pack varenicline tartrate 1 mg tablet 1 mg PO BID 07/30/25 07/30/25 Previous Rx's ?Medication ?Instructions ?Recorded cock up splint #1 ea 11/22/22 cervical collar #1 ea 04/23/23 hydrocodone 5 mg-acetaminophen 325 1 tab PO Q6H PRN pa in #30 tabs 11/13/25 mg tablet oxycodone-acetaminophen 10 mg-325 1 tab PO Q8H PRN magnolia n #14 tabs 11/16/25 mg tablet (Percocet) Allergies Allergy/AdvReac Type Severity Reaction Status Date / Time Penicillins Allergy Unknown Verified 07/30/25 12:42 Review of Systems Musc: Reports: extremity pain PFSH ED PFSH: Social History Smoking and tobacco/nicotine status: current every day tobacco/nicotine user Alcohol intake: never Substance/Drug Use: never Physical Exam Const: COMMON NORMALS: no acute distress, patient oriented x3 and healthy appearing HENMT: COMMON NORMALS: normocephalic and atraumatic HEAD & SCALP: normocephalic and atraumatic Neck/C-Spine: COMMON NORMALS: full ROM and supple Chest: COMMONS NORMALS: normal inspection of the chest Resp: COMMON NORMALS: normal respiratory effort Cardio: COMMON NORMALS: regular rate, regular rhythm and No murmurs present (Cardio) RATE: regular rate RHYTHM: regular rhythm Extremity: COMMON NORMALS: full ROM NARRATIVE EXTREMITY EXAM: Tenderness noted over left hip incisions clean dry and intact no erythema or warmth to touch. Distal pulses sensation intact has some slight swelling to left lower leg Neuro: COMMON NORMALS: patient oriented x3, moves all extremities and no focal motor deficits Psych: COMMON NORMALS: mental status grossly normal, Normal thought process present and cooperative THOUGHT PROCESS: Normal thought process present Skin: COMMON NORMALS: no rashes or lesions noted and no wounds GENERAL SKIN EXAM: no rashes or lesions noted Course Vital Signs: Vital signs: Vital Signs Temperature 98.3 F 08/01/25 16:32 Pulse Rate 78 08/01/25 16:40 Respiratory Rate 17 08/01/25 16:32 Blood Pressure 131/75 08/01/25 16:40 Pulse Oximetry 96 08/01/25 16:40 Oxygen Delivery Me thod Room Air 08/01/25 16:40 MDM - Fall Medical Decision Making Patient presents for left hip pain is postop pain. Differential includes DVT, fracture, wound infection. X-ray of her hip was interpreted by me showed no acute abnormalities no signs of fracture. On exam wounds clean dry intact no fever no signs of infection. Ultrasound got report from the tech no signs of DVT she has distal pulses sensation intact her pain is improved after Dilaudid she stable for discharge back to the residential she is to follow-up with orthopedist return if worsening she understands agrees to plan. Medical Records I reviewed the patient's medical records. XR interpretation done by ED provider, pending radiology final review ED provider radiology interpretation(s): xr l hip: no acute abnormality Discharge Plan Discharge Patient Disposition: Home Clinical Impression: Hip pain, left Condition: Stable Prescriptions: New oxycodone-acetaminophen [Percocet] 10-325 mg tablet 1 tab PO Q8H PRN (Reason: pain) Qty: 14 0RF No Action (DME) cock up splint See Rx Instructions .Route .MEDSUPPLY Qty: 1 0RF Rx Instructions: As directed (DME) cervical collar See Rx Instructions .Route .MEDSUPPLY Qty: 1 0RF Rx Instructions: As directed trazodone 150 mg tablet See Rx Instructions .ROUTE .COMPLEX Rx Instructions: Take 1 to 2 tablets by mpouth daily at bedtime hydrocodone-acetaminophen 5-325 mg tablet 1 tab PO Q6H PRN (Reason: pain) Qty: 30 0RF diphenhydramine-acetaminophen [Tylenol PM Extra Strength] 25-500 mg Tablet 1 tab PO Q6H PRN (Reason: slepp ) varenicline tartrate 1 mg tablet 1 mg PO BID varenicline tartrate 0.5 mg (11)- 1 mg (42) tablets,dose pack See Rx Instructions .ROUTE .COMPLEX Rx Instructions: TAKE BY MOUTH DIRECTED ON INSIDE OF PACKAGE Discharge Orders: Discharge ED (Routine); Ordered 08/01/25 Ordered By: Victor M Franco Referrals: Dung Olivas MD [Physician, Orthopedics] - 4-7 days Vaughn Mcconnell MD [Primary Care Provider, Family Practice] Discharge Diet: Advance as tolerated Discharge Activity: Resume usual activity Patient Instructions: Hip Pain (ED), Opioid Safety Print Language: American Coding Level of Care Code ED Log Snaker for Rebecca Mcfarlane
--- NOTE | 2025-08-01 17:34 | PC.NURSE ---
Pt report called to assisted to [place] at [facility].
[2025-08-01 18:00] VITALS: BP 121/80; PULSE 71; O2SAT 91
[2025-08-01 18:12] VITALS: PULSE 71; O2SAT 94
[2025-08-01 18:36] VITALS: BP 121/80; PULSE 83; O2SAT 92
== END 2025-08-01 18:35 | disposition home or self-care (01) ==
PROVIDERS: Emergency Provider Emergency Medicine; PCP Family Medicine
DX: M25.552 Pain in left hip (principal); Z72.0 Tobacco use
CPT/HCPCS: 73502; 93971; 96374; 96375; 99284; J1171; J2405